=== PATIENT | female | born 1960 | race Caucasian/White ===

== ENCOUNTER 2018-08-15 20:59 | Inpatient (IN) | payer OTHER ==
--- NOTE | 2018-08-15 21:08 | ED ---
HPI Chest Pain - HPI Summary HPI Summary: THE HPI IS LIMITED DUE TO LEVEL 5 CAVEAT - SEDATION. STEMI called at 1945 approximate arrival at 2030. Patient is a 57 y/o F transfer from [facility] after presenting with CP. Per [place], patient initially was stable there with her troponin initially slightly elevated. Pt was supposed to be transferred here for further eval, however, 15-20 min later the patient became asystolic for about 30 seconds. At [facility], she was combative and shaky. She then had a complete heart block. Patient was paced. Patient was intubated because she was combative and then was transferred [facility] the cath team with Dr. Patterson (bander) was present in ED. Patient was seen by Dr. Ritter. Patient was already intubated, sedated, and on transcutaneous pacemaker upon arrival. LEVEL 5 CAVEAT: COMPLETE HPI, PAST MEDICAL HISTORY, SURGICAL HISTORY, AND FAMILY HISTORY UNABLE TO BE OBTAINED DUE TO PATIENT SEDATION. - History of Current Complaint Hx Obtained From: EMS, Other: - [facility] Hx From Patient Unobtainable Due To: Other - Sedation PMH/Surg Hx/FS Hx/Imm Hx Previously Healthy: No - THE PMH IS LIMITED DUE TO LEVEL 5 CAVEAT - SEDATION Infectious Disease History: Denies: Traveled Outside the [place] in Last 30 Days Review of Systems - ROS Summary Review of Systems Summary: THE ROS IS LIMITED DUE TO LEVEL 5 CAVEAT - SEDATION. Positive: Chest Pain All Other Systems Reviewed And Are Negative: No Physical Exam - Summary Physical Exam Summary: THE PE IS LIMITED DUE TO LEVEL 5 CAVEAT - SEDATION. VITAL SIGNS: Reviewed. GENERAL: Vitals stable. Patient is intubated and sedated on arrival HEAD AND FACE: No signs of trauma. No ecchymosis, hematomas or skull depressions. No sinus tenderness. EYES: Pupils are pinpointed bilaterally. EARS: Hearing grossly intact. Ear canals and tympanic membranes are within normal limits. MOUTH: Oropharynx within normal limits. NECK: Supple, trachea is midline, no adenopathy, no JVD, no carotid bruit, no c- spine tenderness, neck with full ROM CHEST: Symmetric, no tenderness at palpation LUNGS: Clear to auscultation bilaterally. No wheezing or crackles. Bilateral breath sounds on intubation. CVS: Patient has a transcutaneous pacemaker. ABDOMEN: Soft, non-tender. No signs of distention. No rebound no guarding, and no masses palpated. Bowel sounds are normal. EXTREMITIES: FROM in all major joints, no edema, no cyanosis or clubbing. NEURO: Alert and oriented x 3. No acute neurological deficits. Speech is normal and follows commands. SKIN: Dry and warm Triage Information Reviewed: Yes Vital Signs On Initial Exam: Initial Vital Signs Temp 0 F 08/15/18 21:06 Pulse 80 08/15/18 21:06 Resp 0 08/15/18 21:06 BP 0/0 08/15/18 21:06 Pulse Ox 0 08/15/18 21:06 Vital Signs Reviewed: Yes Chest Pain Course/Dx - Course Course Of Treatment: LIMITED DUE TO LEVEL 5 CAVEAT - SEDATION. STEMI called at 1944 approximate arrival at 2029. Patient is a 57 y/o F transfer from [facility] after presenting with CP. Per [facility], patient initially was stable there with troponin initially slightly elevated. Pt was supposed to be transfer here for further eval, however, 15-20 min later patient became asystolic for about 30 seconds, combative and shaky. She then had a complete heart block. Patient was paced. Patient was intubated because she was combative and was transferred here. In ED, [facility] cath team with Dr. Patterson (bander) was present in ED. Patient was seen by Dr. Ritter. Patient is intubated, sedated, and on transcutaneous pacemaker. 2049: consult with Dr. Patterson, discussed medical evaluation in ED. Dr. Patterson states he does not need an EKG and will take the patient straight to pit laborer in following medical evaluation. 2054: patient arrives in ED. 2054: Dr. Ritter at bedside. Patient was given 5mg Versed by EMS 1 minutes [facility]. Last BP was 117/5. PE reveals vitals stables, pupils are pinpointed bilaterally. Heart exam normal, Lung exam normal bilateral breath sounds. Patient will be admitted to hospital by Dr. Patterson with dx of inferior wall VA and complete heart block. - Diagnoses Provider Diagnoses: Acute VA, inferior wall, Complete heart block During the Visit The Following Alert/Code Occurred: STEMI - Provider Notifications Discussed Care Of Patient With: Margo Patterson Time Discussed With Above Provider: 20:50 Instructed by Provider To: Other - Discussed patient case with Dr. Patterson who will take the patient to pit laborer immediately after ER assessment. Dr. Patterson accepts the patient for admission to [facility]. Discharge - Sign-Out/Discharge Documenting (check all that apply): Patient Departure - Admit All imaging exams completed and their final reports reviewed: No Studies Patient Received Moderate/Deep Sedation with Procedure: No - Discharge Plan Condition: Critical Disposition: ADMITTED TO [facility] - Attestation Statements Document Initiated by Scribe: Yes Documenting Scribe: Tr Emmanuel Provider For Whom Scribe is Documenting (Include Credential): Ingris Ritter MD Scribe Attestation: ITr, scribed for Ingris Ritter MD on 08/15/18 at 2135. Status of Scribe Document: Ready
[2018-08-15] MEDS ORDERED: fentaNYL* 50 MCG/ML 2 ML VIAL (100 MCG VIAL) ONE (21:11)
[2018-08-15] MEDS ORDERED: Midazolam* 1 MG/ML 5 ML VIAL (5 MG) ONE (21:11)
[2018-08-15] MEDS ORDERED: Eptifibatide IV (Load dose)(*) 2 MG/ML 10 ml VIAL ONE (21:34)
[2018-08-15] MEDS ORDERED: Nitroglycerin TAB 0.4 MG* 0.4 MG TAB SL PRN (22:09)
[2018-08-15] MEDS ORDERED: Acetaminophen TAB* 325 MG PO PRN (22:09)
[2018-08-15] MEDS ORDERED: Heparin(*) 1000 UNIT/ML 10 ML VIAL CATH LAB IV ONE (22:09)
[2018-08-15] MEDS ORDERED: nitroGLYCERIN DRIP* 25,000 MCG/250 ML BTL ONE ×2 (22:10→22:15)
[2018-08-15] MEDS ORDERED: Iohexol 350 (CONTRAST) 200 ML MDV IV ONE (22:10)
[2018-08-15] MEDS ORDERED: Lidocaine 1% INJ* 10 MG/ML 30 ML SDV ONE (22:10)
[2018-08-15] MEDS ORDERED: Heparin 2 UNITS/ML IVPREMIX* 3,000 UNIT/1,500 ML BAG IV ONE (22:10)
[2018-08-15] MEDS ORDERED: NS 0.9% 1000 ML** 1,000 ML IV SCH (22:15)
[2018-08-15] MEDS ORDERED: Ticagrelor* 90 MG TAB PO ONE (22:18)
[2018-08-15] MEDS ORDERED: Propofol* 100 ML ONE (22:29)
[2018-08-15] MEDS: Propofol* 100 ML IV SCH (22:30)
[2018-08-15] MEDS ORDERED: Acetaminophen ADULT LIQ* 650 MG/20.3 ML UDC NG TUBE PRN (22:56)
[2018-08-15] MEDS ORDERED: Dextrose 50% Syringe 50 ML* 25 GM/50 ML SYRINGE IV PUSH PRN (23:16)
[2018-08-15] MEDS: Atorvastatin* 80 MG TAB NG TUBE SCH (23:19)
[2018-08-15] MEDS ORDERED: NS 0.9% 500 ML* 500 ML IV ONE (23:33)
--- NOTE | 2018-08-15 23:58 | CATH ---
STENT REPORT: DATE OF PROCEDURE: 08/15/18 - ROOM #ICU-03 PRIMARY CARE PHYSICIAN: Unknown. PROCEDURES: 1. Right common femoral artery access. 2. Bilateral obstructive coronary cineangiography. 3. Left heart catheterization. 4. Left ventriculography. 5. Stent placement right coronary artery, 3.0 x 16 Synergy drug-eluting stent. HISTORY: A 57-year-old methamphetamine user, presented to [facility] with an acute inferior wall ST elevation infarct with spontaneous resolution of symptoms and EKG changes with medical management, then followed by recurrence of chest pain, reported "asystole," apparently responsive to atropine. It is unknown to me whether she received CPR or for how long. EKG after resuscitation showed recurrence of inferior ST elevation and complete heart block. She was externally paced, intubated, and transferred here. PROCEDURE ACCESS: Right femoral artery sheath 6F. MEDICATIONS: Subcu lidocaine, IC Integrilin double bolus. The patient had no NG tube, but received loading dose of Brilinta as soon as she arrived in the ICU after NG tube was placed. She received aspirin, heparin 5000 units at [facility]. The additional medications here included nitroglycerin 200, 200 mcg IC RCA. 7000 units of heparin, 4 mg of IV versed for sedation. DIAGNOSTIC CATHETERS: 6FL 3.5, 6FR 4, 6F pigtail. GUIDING CATHETERS: 6FR 4 wire, 14 BMW, which easily traversed the proximal RCA lesion, which was then stented with a 3 x 16 Synergy drug-eluting stent at 11 atmospheres 10 seconds, then postdilated with a 3 x 15 NC balloon at 20 atmospheres for 30 seconds. LV gram was then performed. HEMODYNAMICS: Post revascularization LV 180/22. No aortic valve gradient on pullback. ANGIOGRAPHY: Fluoroscopy documented her ET tube to be at the origin of the left bronchus, it was therefore pulled back approximately an inch, and repeat fluoroscopy documented placement above the lizzy. Left main: The left main is relatively short, normal. LAD: The LAD is moderate, extends about the apex, it has mild luminal irregularity, but no significant stenosis. Her LAD supplies several small diagonals. Circumflex: Her circumflex is not dominant, it is large, she has a moderate first marginal, large posterolateral followed by a smaller posterolateral. There are left to right collaterals to probably an RV free wall branch. RCA: The RCA is moderate, dominant with an eccentric and 90% proximal stenosis with distal ELIJAH-2 flow, this is unchanged after a total of 400 mcg of IC nitroglycerin. After stent deployment and high pressure postdilatation, the stent is well expanded, there is no dissection, residual stenosis. Distal flow is ELIJAH 3, there is a normal myocardial blush. LV gram: There is mild dilatation of the ascending aorta, there is no MR. The inferior base is akinetic, the inferior wall shows mild hypokinesis, estimated LVEF 45% to 50%. Right femoral artery angiogram showed sheath entry in segment 2, there is no stenosis. CONCLUSION: 1. Single-vessel disease RCA with acute inferior wall ST elevation infarct, excellent angiographic result with drug-eluting stent placement, adjunctive double bolus IC Integrilin. 2. Normal LVEF with regional wall motion abnormality. 3. Elevated LVDP and systolic hypertension. 4. Successful right femoral artery closure with Angio-Seal. [id number]/[facility] #: [id number] HUSSEIN
[2018-08-15 23:59] LABS: Creatine Kinase 240 U/L (10-223); Glucose 101 mg/dL (70-100)
[2018-08-16 00:05] LABS: CKMB ng/mL 10.1 ng/mL (0.6-6.3)
--- NOTE | 2018-08-16 00:23 | CONS ---
INTERVENTIONAL CARDIOLOGY CONSULT NOTE: DATE OF CONSULTATION: 08/15/18 PRIMARY CARE PHYSICIAN: Unknown. HISTORY OF PRESENT ILLNESS: A 57-year-old woman transferred from [place] [facility] with acute inferior wall ST elevation infarct, complete heart block, intubated. The patient is unable to provide any history as she is intubated and sedated. However, per discussion with her provider at [place], she apparently developed chest pain at around 1800 hours and promptly presented in the ER. EKG there at 1803 by my review shows an acute inferior wall ST elevation infarct and sinus rhythm. She had injury current in 2, 3, and aVF as well as reciprocal ST depression in 1, aVL. She also had slight ST elevation in V3 similar to an old tracing. She had poor R-wave progression. Apparently, subsequently her chest pain improved with medical management and resolved, repeat EKG at 1840 hours shows improvement in the injury current and the reciprocal changes with now inferior T-wave inversion. She apparently; however, then had recurrence of chest pain, became "asystolic," was resuscitated. EKG at 1903 hours showed complete heart block with a ventricular rate of 49, and again inferior ST elevation with reciprocal ST depression in aVL, as well as ST elevation in V1 and V2. She again had poor R-wave progression. Lab at [place] included a BUN of 15 with creatinine 0.8, GFR 74. Random blood sugar was 143. Magnesium 2. Alkaline phosphatase was elevated at 172, we have no prior. First troponin was 0.189. INR normal, CBC was normal with a platelet count of 292,000. She apparently had a chest x-ray there after intubation, which per the transfer records indicates proper tube placement. En route, her end-tidal CO2s were normal. At [place], she received 40 mg of etomidate and 140 mg of succinylcholine for sedation. She also received 5 mg of Versed, 0.5 mg of atropine, an additional 2.5 mg of Versed, 5000 units of heparin, 5 mg of IV metoprolol some 20 to 30 minutes prior to her asystole, as well as sublingual nitroglycerin and aspirin 324 mg. Her potassium was normal at 3.7 with a normal sodium. We do not have that chest x-ray. PAST MEDICAL HISTORY: 1. Diabetes type 2. 2. She is an active methamphetamine user. According to transfer history, she last used this morning but we know nothing about the quantity or frequency of her use. 3. History of diverticulitis and gastritis. PREHOSPITAL MEDICATIONS: Unknown. ALLERGIES: Described as to NICKEL, CIPRO, and ADHESIVE TAPE. SOCIAL HISTORY: She is a smoker. REVIEW OF SYSTEMS: Unobtainable. PHYSICAL EXAM: On arrival, she was sedated, having just received 5 mg of Versed during transport. Initial BP was 117/45, she was paced at 80. In the labor relations manager, blood pressure was 129/88, she was in sinus rhythm at 90 with normal VT interval. External pacing was therefore discontinued. Her lungs were clear laterally without rales or wheezes. HEENT: Her pupils were small and symmetrical, face grossly symmetric without drooping. Neck: No thyromegaly. Carotids palpable. No bruits. Cardiac Exam: Relatively distant heart sounds, difficult to auscultate with the external pacer. No obvious murmur or gallop. Abdomen: Soft, nontender with bowel sounds, I could not feel the liver edge or the aorta. No bruit. Femoral pulses palpable. Extremities: Radial pulses and pedal pulses palpable. No cyanosis, clubbing, or edema. DIAGNOSTIC STUDIES/LAB DATA: As above. IMPRESSION: 1. Acute inferior wall ST elevation infarct, complicated by apparently asystole and complete heart block, treated with atropine and external pacing, at arrival here she was in sinus rhythm. She was brought directly to the catheterization lab for catheterization and potential revascularization. 2. Methamphetamine use. We will avoid beta-blockers, rule out coronary spasm. 3. Obesity. 4. Tobacco use. Thank you for the consultation. We will follow with you. [id number]/[facility] #: [id number] HUSSEIN
[2018-08-16] MEDS: Insulin LISPRO* 1 UNITS UNIT SUBCUT SCH ×6 (00:32→20:11)
[2018-08-16 00:56] LABS: Urine Appearance Cloudy; Urine Bilirubin Negative (Negative); Urine Blood Negative (Negative); Urine Color Yellow; Urine Glucose Negative (Negative); Urine Ketones Negative (Negative); Urine Nitrite Negative (Negative); Urine Protein Negative (Negative); Urine Specific Gravity 1.032 (1.010-1.030); Urine Urobilinogen Negative (Negative)
[2018-08-16] MEDS: Captopril TAB* 12.5 MG PO SCH ×4 (01:14→21:02)
[2018-08-16 01:21] LABS: Urine Benzodiazepine Screen Presumptive Positive (None Detect); Urine Opiates Screen None Detected (None Detect)
[2018-08-16] MEDS: Propofol* 100 ML IV SCH ×2 (01:40→04:56)
--- NOTE | 2018-08-16 02:03 | PN ---
Hospitalist Progress Note Date of Service: 08/16/18 HOSPITALIST ADDENDUM Called by RN because patient was hypotensive and hypothermic. NTG drip d/c with good BP response. Bairhugger and warm saline infused with good response and temperature normalization. She is up to 60mcg of Propofol, but not comfortable, frowning - will add Fentanyl. Continue to monitor.
--- NOTE | 2018-08-16 02:09 | HP ---
CC: Dr. Katrina Allan; Dr. Margo Patterson HISTORY AND PHYSICAL: DATE OF ADMISSION: 08/15/18 TIME OF EVALUATION: 10:45 a.m. CRITICAL CARE PHYSICIAN: Dr. Katrina Allan. EMBROIDERER: Dr. Margo Patterson. PRIMARY CARE PROVIDER: There is no primary care provider on record. CHIEF COMPLAINT: It is obtained from the records as the patient is intubated and sedated. "Chest pain." HISTORY OF PRESENT ILLNESS: Please note that the patient is intubated and sedated at the time of my interview, so all of the information is obtained from her records from [facility] as the patient has not been admitted to our facility in the past. As per records, Ms. Sawyer is a 57-year-old lady with a past medical history of hypertension, type 2 diabetes, methamphetamine abuse, tobacco abuse, who presented to the emergency room at [facility] with complaints of chest pain that had started shortly before 6 p.m. today. According to the ED provider by the time he went to evaluate her, her chest pain was resolved. She was not in distress, had no complaints of shortness of breath, had admitted using meth the morning of presentation and every day. Her initial workup at [place] had shown ischemic changes in the inferior leads and also troponin elevation and the plan was for her to be transferred to [facility] [place] further evaluation. Around 6:40 p.m., the notes document that she was still pain-free and she received heparin and also got Lopressor 5 mg IV. Her case was discussed with [facility] and arrangements were being made for her transfer when she went asystolic and a code was called. According to the notes, the provider described that she was shaking and her heart rhythm slowly came back bradycardic and complete heart block. She received atropine 0.5 mg IV push and pacing pads were applied. At that point, the patient was yelling in pain because her chest pain had returned. She received Versed. They were able to pace her and her blood pressure had improved. Due to the medication she received for the pacing, the patient was more sedated and she ended being intubated in the ED prior to her transfer. At [facility], she was taken to the section laborer by Dr. Patterson and she was found to have a 90% stenosis in the proximal RCA that did not respond to nitroglycerin, felt not to be secondary to vasospasms. The patient was stented with a drug-eluting stenting and transferred to the intensive care unit for further management. At the time of evaluation, the patient was receiving sedation with propofol and although she was agitated early on, she is now calm and sedated. PAST MEDICAL HISTORY: 1. Hypertension, not on medications. 2. GERD. 3. Type 2 diabetes. 4. Methamphetamine abuse. 5. Tobacco abuse. PAST SURGICAL HISTORY: Possible pelvic adhesions. MEDICATION LIST: Not documented on the records from [place]. ALLERGIES: NICKEL, CIPROFLOXACIN, and ADHESIVE. FAMILY HISTORY: Unable to obtain due to the patient's sedation. SOCIAL HISTORY: History of tobacco abuse and methamphetamine abuse, but details are not available at this time. REVIEW OF SYSTEMS: Unable to obtain due to the patient's sedation. PHYSICAL EXAMINATION VITAL SIGNS: Temperature 97.5, heart rate 83, respiratory rate 14, blood pressure 88/63, Oxygen saturation 99% on CMV 14/450/80/5 GENERAL: The patient is an overweight, middle-aged lady, lying in the ICU bed, in no acute distress. HEENT: Pupils are equal. Moist mucous membranes. CHEST: Breath sounds bilaterally with no added sounds. CVS: Normal S1, S2. Regular rate and rhythm. ABDOMEN: Obese, soft, nontender, and nondistended. Bowel sounds are present. EXTREMITIES: No edema. NEURO: The patient is sedated at this time. LABORATORY AND IMAGING DATA: The patient had labs done at [facility] that included a sodium of 143, potassium of 3.7, chloride of 104, bicarb of 26, anion gap of 13, BUN of 15, creatinine of 0.8, glucose of 143, calcium of 9.3, magnesium 2. Total bilirubin 0.6, AST 29, ALT 42, alk phos 172. CPK 285, CK-MB 8.5, troponin 0.189. Albumin 3.7, globulin 3.8. INR is 0.9. CBC showed WBC of 10.8 , hemoglobin of 14.3, hematocrit of 43, platelets of 292 with 48% neutrophils. Chest x-ray done at [place] was read as the heart is normal in size and the lungs are clear, no acute disease. Initial EKG done at 6:[address] elevations in 2, 3, and aVF and those were improved. Later on, the EKG done at 6:40. At that point, she actually had T-wave inversion on the inferior leads with recurrence of ST elevations in the same leads at 7:03 p.m. An EKG done after her cardiac cath at 2258 shows flat Ts in II with T inversion in III. ASSESSMENT AND PLAN: Ms. Sawyer is a 57-year-old female with past medical history of hypertension, type 2 diabetes, methamphetamine and tobacco abuse, who presented to [facility] earlier this evening with complaint of severe chest pain, found to have an ST elevation myocardial infarction, complicated by asystole and complete heart block requiring intubation. The patient was transferred to [facility] where she underwent a cardiac catheterization and found to have 90% stenosis of the right coronary artery, status post stenting. 1. ST elevation myocardial infarction. Management as per Cardiology recommendation. The patient was started on aspirin, Brilinta, atorvastatin and captopril per Cardiology. She will be monitored in the intensive care unit. 2. Hypertension is controlled at this time. The patient will be continued on captopril. 3. Type 2 diabetes. We will check fingersticks every 4 hours and cover with lispro sliding scale while the patient is n.p.o. 4. Methamphetamine abuse. The patient will be monitored for signs of withdrawal, but at this point she is sedated with propofol and doing well. 5. DVT prophylaxis: The patient has a score of 2 on a DVT Prophylaxis Risk Assessment Guide and she will be started on SCDs. 6. Code status is full. TIME SPENT: Approximately 50 minutes of critical care time was spent to complete this admission, more than half of this time was spent [id number] with the patient and coordination of care. [id number]/[facility] #: [id number] HUSSEIN
[2018-08-16] MEDS ORDERED: NS 0.9% 1000 ML** 1,000 ML IV SCH (02:30)
[2018-08-16] MEDS: Chlorhexidine MOUTHWASH 0.12%* 15 ML UDC TOPICAL SCH ×2 (04:38→08:38)
[2018-08-16 05:02] LABS: ABS Basophils 0.1 10^3/ul (0-0.2); ABS Eosinophils 0.1 10^3/ul (0-0.6); ABS Lymphocytes 3.5 10^3/ul (1.0-4.8); ABS Neutrophils 5.7 10^3/ul (1.5-7.7); Eosinophil % 0.9 %; Hematocrit 36 % (35-47); Hemoglobin 11.8 g/dL (12.0-16.0); Lymphocyte % 33.8 %; Mean Corpuscular HGB Conc 33 g/dL (31-36); Mean Corpuscular Hemoglobin 28 pg (27-31); Mean Corpuscular Volume 83 fL (80-97); Mean Platelet Volume 9.2 fL (7.4-10.4); Nucleated Red Blood Cells % 0.1; Platelet Count 224 10^3/uL (150-450); Red Blood Count 4.28 10^6 /uL (3.70-4.87); Red Cell Distribution Width 15 % (10.5-15); White Blood Count 10.3 10^3/uL (3.5-10.8)
[2018-08-16 05:20] LABS: BUN/Creatinine Ratio 21.9 (8-20); Blood Urea Nitrogen 16 mg/dL (6-24); CO2 Carbon Dioxide 25 mmol/L (22-32); Calcium 8.1 mg/dL (8.6-10.3); Cholesterol 165 mg/dL; Creatine Kinase 246 U/L (10-223); EGFR African American 99.4 (>60); EGFR Non-African American 82.2 (>60); Glucose 100 mg/dL (70-100); HDL Cholesterol 36.7 mg/dL; LDL Cholesterol 84 mg/dL; Potassium 3.3 mmol/L (3.5-5.0); Sodium 141 mmol/L (135-145); Triglycerides 223 mg/dL
[2018-08-16 05:22] LABS: Anion Gap 4 mmol/L (2-11); Chloride 112 mmol/L (101-111)
[2018-08-16 05:25] LABS: CKMB ng/mL 20.2 ng/mL (0.6-6.3); Troponin I 1.88 ng/mL (<0.04)
[2018-08-16] MEDS ORDERED: fentaNYL INFUSION 50 MCG/ML* 2,500 MCG/50 ML BAG IV SCH ×3 (06:00→08:00)
[2018-08-16] MEDS: Aspirin 81 mg CHEW TAB* 81 MG TAB.CHEW NG TUBE SCH (08:36)
[2018-08-16] MEDS: Ticagrelor* 90 MG TAB PO SCH ×2 (08:36→21:03)
[2018-08-16] MEDS: Pantoprazole IV* 40 MG IV SCH (08:45)
--- NOTE | 2018-08-16 09:21 | HP ---
History of Present Illness - History of Present Illness Reason for Visit: STEMI, shock, code arrest, intubation/mechanical ventilation History of Present Illness: 57 yo F with hx/o HTN, DM2, methamphetamine abuse, tobacco abuse transfered from [facility] for concerns with IW-STEMI followed by 30 seconds of asystole with complete heart block. Patient was intubated for extreme agitation and transferred to [facility] with transcutaneous pacemaker. [facility] the [facility] for PCI and found to have 90% stenosis of the proximal RCA s/p TOBY 08/15: Patient was wide awake and following commands appropriately with propofol just turned off and fentanyl 50. She was extubated on fentanyl 25 which was soon turned off without any immediate complications. She denies any current pain, fever. - Past Medical History Cardiac: CAD, HTN, Hyperlipidemia Gastrointestinal: GERD Psych: Other - Substance abuse Endocrine: Diabetes - Past Family History Family History: Other - Non contributory - Past Social History Smoke: # pack years Drugs: Other - Amphetamines Review of Systems - Review of Systems Constitutional: Negative: Fever, Chills Eyes: Negative: Vision Change ENT: Positive: Throat Pain. Negative: Ear Pain, Ear Discharge, Nose Congestion Respiratory: Positive: Cough, Shortness of Breath Cardiovascular: Negative: Chest Pain Gastrointestinal: Negative: Nausea, Vomiting, Abdominal Pain Genitourinary: Negative: Dysuria, Frequency Musculoskeletal: Negative: Neck Pain, Shoulder Pain, Back Pain Skin: Negative: Rash Neurological: Positive: Weakness - Medications/Allergies Allergies/Adverse Reactions: Allergies Allergy/AdvReac Type Severity Reaction Status Date / Time Adhesive Tape Allergy Unknown Verified 08/15/18 23:01 Reaction Details ciprofloxacin Allergy Unknown Verified 08/15/18 23:01 Reaction Details nickel Allergy Unknown Verified 08/15/18 23:01 Reaction Details Medications: Current Medications Acetaminophen (Tylenol Adult Liq*) 650 mg NG TUBE Q4H PRN PRN Reason: HEADACHE/PAIN Aspirin (Aspirin 81 Mg Chew Tab*) 81 mg NG TUBE DAILY [facility] Last Admin: 08/16/18 08:36 Dose: 81 mg Atorvastatin Calcium (Lipitor*) 80 mg NG TUBE 1700 [facility] Last Admin: 08/15/18 23:19 Dose: 80 mg Captopril (Capoten Tab*) 6.25 mg PO TID [facility] Last Admin: 08/16/18 08:36 Dose: 6.25 mg Chlorhexidine Gluconate (Peridex Mouth Wash 0.12%*) 15 ml TOPICAL Q4H [facility] Last Admin: 08/16/18 08:38 Dose: 15 ml Dextrose (D50w Syringe 50 Ml*) 12.5 gm IV PUSH .FOR FS < 60 - SS PRN PRN Reason: FS < 60 Propofol (Diprivan*) 100 mls @ 11.1 mls/hr IV PER RATE [facility]; Protocol Last Admin: 08/16/18 04:56 Dose: 33.3 mls/hr Sodium Chloride (Ns 0.9% 1000 Ml) 1,000 mls @ 100 mls/hr IV PER RATE [facility] Last Admin: 08/16/18 02:26 Dose: 100 mls/hr Fentanyl Citrate (Fentanyl Infusion Bag 50 Mcg/Ml 50 Ml) 2,500 mcg in 50 mls @ 1 mls/hr IV Q50H [facility]; Protocol Insulin Human Lispro (Humalog*) 0 units SUBCUT FS Q4 ICU [facility]; Protocol Last Admin: 08/16/18 08:37 Dose: Not Given Nitroglycerin (Nitroglycerin Tab 0.4 Mg*) 0.4 mg SL Q5M PRN PRN Reason: ANGINA Pantoprazole Sodium (Protonix Iv*) 40 mg IV DAILY [facility] Ticagrelor (Brilinta*) 90 mg PO BID [facility] Last Admin: 08/16/18 08:36 Dose: 90 mg Exam - Exam Vital Signs: Vital Signs (72 hours) 08/15/18 08/15/18 08/15/18 21:06 22:30 22:31 Temperature 0 F Pulse Rate 80 92 82 Respiratory 0 Rate Blood Pressure 0/0 129/95 (mmHg) O2 Sat by Pulse 0 100 100 Oximetry 08/15/18 08/15/18 08/15/18 22:45 22:58 23:00 Temperature 65.4 F Pulse Rate 101 86 81 Respiratory 20 14 Rate Blood Pressure 117/88 129/95 92/67 (mmHg) O2 Sat by Pulse 100 100 100 Oximetry 08/15/18 08/15/18 08/15/18 23:15 23:20 23:30 Temperature 95.4 F 95.2 F 95.4 F Pulse Rate 79 77 77 Respiratory Rate Blood Pressure 87/61 84/51 79/54 (mmHg) O2 Sat by Pulse 100 100 100 Oximetry 08/15/18 08/16/18 08/16/18 23:45 00:00 00:04 Temperature 95.5 F 95.2 F 95.0 F Pulse Rate 74 71 71 Respiratory Rate Blood Pressure 81/53 83/55 (mmHg) O2 Sat by Pulse 100 100 100 Oximetry 08/16/18 08/16/18 08/16/18 00:15 00:30 00:31 Temperature 94.8 F 94.8 F 94.8 F Pulse Rate 70 67 66 Respiratory Rate Blood Pressure 84/52 69/43 75/45 (mmHg) O2 Sat by Pulse 100 100 100 Oximetry 08/16/18 08/16/18 08/16/18 00:45 01:00 01:15 Temperature 94.5 F 94.1 F 94.5 F Pulse Rate 67 65 67 Respiratory 14 Rate Blood Pressure 72/51 71/48 77/56 (mmHg) O2 Sat by Pulse 100 100 100 Oximetry 08/16/18 08/16/18 08/16/18 01:30 01:45 01:55 Temperature 93.6 F 93.7 F 96 F Pulse Rate 68 69 Respiratory Rate Blood Pressure 80/58 87/62 (mmHg) O2 Sat by Pulse 100 100 Oximetry 08/16/18 08/16/18 08/16/18 02:00 02:15 02:30 Temperature 94.6 F 95.0 F 95.2 F Pulse Rate 69 70 73 Respiratory 14 Rate Blood Pressure 92/56 90/55 97/61 (mmHg) O2 Sat by Pulse 100 100 99 Oximetry 08/16/18 08/16/18 08/16/18 02:45 03:00 03:01 Temperature 95.5 F 96.1 F 96.1 F Pulse Rate 77 77 77 Respiratory 14 Rate Blood Pressure 110/69 103/72 (mmHg) O2 Sat by Pulse 99 99 99 Oximetry 08/16/18 08/16/18 08/16/18 03:15 03:30 04:00 Temperature 96.4 F 96.8 F 97.5 F Pulse Rate 79 80 79 Respiratory 14 Rate Blood Pressure 112/66 105/70 101/63 (mmHg) O2 Sat by Pulse 99 99 99 Oximetry 08/16/18 08/16/18 08/16/18 04:01 04:30 05:00 Temperature 97.5 F 97.5 F 97.5 F Pulse Rate 79 86 83 Respiratory 14 Rate Blood Pressure 122/72 88/63 (mmHg) O2 Sat by Pulse 99 99 99 Oximetry 08/16/18 08/16/18 08/16/18 05:17 05:30 05:34 Temperature 97.7 F 97.7 F Pulse Rate 84 87 Respiratory 14 Rate Blood Pressure 95/63 102/61 (mmHg) O2 Sat by Pulse 99 99 Oximetry 08/16/18 08/16/18 08/16/18 05:45 06:00 06:14 Temperature 97.9 F 97.9 F Pulse Rate 88 90 Respiratory 17 14 Rate Blood Pressure 107/68 113/70 (mmHg) O2 Sat by Pulse 99 99 Oximetry 08/16/18 08/16/18 08/16/18 06:15 06:30 06:45 Temperature 98.1 F 98.1 F 98.1 F Pulse Rate 87 89 88 Respiratory Rate Blood Pressure 120/75 127/79 137/74 (mmHg) O2 Sat by Pulse 99 99 100 Oximetry 08/16/18 08/16/18 08/16/18 07:00 07:30 08:00 Temperature 98.1 F 98.2 F 98.2 F Pulse Rate 87 87 81 Respiratory Rate Blood Pressure 128/79 121/73 116/74 (mmHg) O2 Sat by Pulse 99 100 100 Oximetry 08/16/18 08/16/18 08:30 09:00 Temperature 98.1 F 98.1 F Pulse Rate 81 78 Respiratory Rate Blood Pressure 118/70 (mmHg) O2 Sat by Pulse 99 98 Oximetry General: Alert, Oriented x3, No acute distress HEENT: Atraumatic, PERRLA, Mucous membr. moist/pink Lungs: Clear to auscultation Cardiovascular: Regular rate, Normal S1, Normal S2 Abdomen: Normal bowel sounds, Soft, No tenderness, No masses Extremities: No clubbing, No cyanosis, No edema Skin: No rashes, No breakdown Neurological: Cranial nerves 3-12 NL Assessment/Plan - Assessment/Plan Assessment: 57-year-old female with past medical history of hypertension, type 2 diabetes, methamphetamine and tobacco abuse admitted after acute IW-STEMI with complete heart block s/p PCI/TOBY to RCA 08/16/18, intubated 08/15 for extreme agitation and extubated on 08/16 Plan: # Acute inferior wall ST elevation myocardial infarction s/p TOBY of RCA (Dr Patterson) -on aspirin, Brilinta, atorvastatin and captopril - Cardio recs # Complete heart block likely due to occluded coronary AM EKG shows NSR Will discuss with cardiology prior to extubation if any intervention is sought # Acute ventilator dependence - SWT/SBT passed-->extubated today without any immediate complication - BD # Hypertension # HLD -on captopril - on atorvastatin # Type 2 diabetes - FSBG, SSI # LLL atelectasis vs PNA afebrile no leukocytosis -no abx for now - ICS upon extubation # Hypokalemia 3.3 -target K+ >/=4 # Methamphetamine abuse # Tobacco abuse - monitor for signs of withdrawal # DVT prophylaxis -SCD Code status: Full Prognosis: Guarded Dispo: Monitor in the ICU Critical Care issues: intubation/mechanical ventilation, complete heart block, STEMI Critical Care time: 60 minutes
[2018-08-16] MEDS: KCL 20 MEQ/100 ML IVPREMIX* 20 MEQ/100 ML BAG IV SCH ×2 (11:26→13:17)
[2018-08-16 12:13] LABS: Creatine Kinase 244 U/L (10-223)
[2018-08-16 12:18] LABS: Troponin I 1.38 ng/mL (<0.04)
[2018-08-16 12:19] LABS: CKMB ng/mL 19.9 ng/mL (0.6-6.3)
[2018-08-16] MEDS: Atorvastatin* 80 MG TAB NG TUBE SCH (16:43)
[2018-08-17 06:32] LABS: BUN/Creatinine Ratio 13.6 (8-20); Calcium 8.2 mg/dL (8.6-10.3); EGFR African American 111.7 (>60); EGFR Non-African American 92.3 (>60); Magnesium 1.9 mg/dL (1.9-2.7); Phosphorus 2.8 mg/dL (2.5-5.0); Potassium 3.6 mmol/L (3.5-5.0)
[2018-08-17] MEDS ORDERED: Perflutren Lipid Microsphere* 3 ML VIAL ONE (08:04)
[2018-08-17] MEDS: Insulin LISPRO* 1 UNITS UNIT SUBCUT SCH ×4 (08:11→21:52)
--- NOTE | 2018-08-17 09:09 | ECHO ---
*[facility]* [place] [address] Fax #: [phone] Transthoracic Echocardiogram Patient: Silverio, Height: 66 in / Shalonda 167.6 cm : 1960 Weight: 171.6 lb / Study Date: 08/17/2018 78 kg Age: 57 BP: 128 / 63 Gender: F BMI/BSA: 27.8 kg/m^2 HR: 60 bpm / 1.92 m^2 *Housing Grant Analyst: * Sahara Pritchard [facility] *Reading Physician: * Baltazar Pan MD Indications: Murmur. History: Complete heart block. PMH: Myocardial infarction. Risk factors: Current tobacco use. Hypertension. Diabetes mellitus. Labs, prior tests, procedures, and surgery: Catheterization. There was a stenosis which was treated with a stent. Conclusions Summary: 1. Left ventricle: The cavity size is normal. Wall thickness is mildly to moderately increased. Systolic function is normal. The estimated ejection fraction is 55-60%. Wall motion is normal; there are no regional wall motion abnormalities. 2. Study data: No prior study is available for comparison. 3. Aortic valve: There is no evidence of stenosis. 4. Tricuspid valve: There is no significant regurgitation. 5. Pericardium, extracardiac: There is no significant pericardial effusion. 6. Mitral valve: There is no significant regurgitation. Study data: Transthoracic echocardiogram. Procedure: Transthoracic echocardiography was performed. Image quality was fair. Intravenous contrast (Definity, 3 mls) was administered. Complete 2D, spectral Doppler, and color flow Doppler. Location: Bedside. Patient status: Inpatient. Patient room number: 446 02. No prior study is available for comparison. Rhythm: Normal sinus rhythm. Findings Left ventricle: The cavity size is normal. Wall thickness is mildly to moderately increased. Systolic function is normal. The estimated ejection fraction is 55-60%. Wall motion is normal; there are no regional wall motion abnormalities. There is no consistent Doppler evidence of clinically significant diastolic dysfunction. Right ventricle: The cavity size is normal. Wall thickness is mildly increased. Systolic function is normal. Left atrium: The atrium is normal in size. Right atrium: The atrium is normal in size. Mitral valve: The leaflets are normal thickness. There is no evidence of stenosis. There is no significant regurgitation. The peak diastolic gradient is 3.5 mm Hg. Aortic valve: The valve is trileaflet. The leaflets are normal thickness. There is no evidence of stenosis. There is no significant regurgitation. The LVOT to aortic valve VTI ratio is 0.7. The ratio of LVOT to aortic valve peak velocity is 0.68. The ratio of LVOT to aortic valve mean velocity is 0.71. The mean systolic gradient is 6.5 mm Hg. The peak systolic gradient is 14.1 mm Hg. Tricuspid valve: The leaflets are normal thickness. There is no evidence of stenosis. There is no significant regurgitation. Pulmonic valve: The leaflets are normal thickness. There is no evidence of stenosis. There is trivial regurgitation. The peak systolic gradient is 3.0 mm Hg. Aorta: Aortic arch: The aortic arch is appears normal. The aortic root is not dilated. Pericardium: There is no significant pericardial effusion. Pulmonary arteries: The main pulmonary artery is normal-sized. Systemic veins: Inferior vena cava: The vessel is normal in size. The respirophasic diameter changes are in the normal range (>= 50%). Measurements Left ventricle Value Ref Right atrium continued Value Ref ANTONETTE, LAX 4.1 cm 3.8 - 5.2 ML dim, ES, A4C 3.2 cm 2.6 - 4.4 ESD, LAX 2.6 cm 2.2 - 3.5 Estimated RAP 8 mm Hg --------- FS, LAX 36 % 27 - 45 PW, ED, LAX (H) 1.3 cm 0.6 - 0.9 Aortic valve Value Ref EF 65 % 54 - 74 Elmer diam, ED 2.0 cm --------- E', lat elmer, TDI (L) 6.0 cm/sec >=10.0 Peak v, S 1.88 m/sec ----- ---- E/e', lat elmer, 16 VTI, S 35.4 cm -------- - TDI Mean grad, S 6.5 mm Hg --------- E', med elmer, TDI (L) 6.0 cm/sec >=7.0 Peak grad, S 14.1 mm Hg ----- ---- E/e', med elmer, 16 TDI Mitral valve Value Ref E', avg, TDI 6.0 cm/sec Peak E 0.93 m/sec -------- - E/e', avg, TDI (H) 16 <=14 Peak A 1.07 m/sec ----- ---- Decel time 220 ms --------- LVOT Value Ref Peak grad, D 3.5 mm Hg --------- Peak hammad, S 1.28 m/sec Peak E/A ratio 0.87 --------- VTI, S 24.9 cm Peak grad, S 7 mm Hg Pulmonic valve Value Ref Mean grad, S 3 mm Hg Peak v, S 0.86 m/sec --------- Peak grad, S 3.0 mm Hg --------- Ventricular septum Value Ref IVS, ED, LAX (H) 1.3 cm 0.6 - 0.9 Aortic root Value Ref Root diam 3.0 cm <4.1 Right ventricle Value Ref AW thickness, ED (H) 0.9 cm 0.1 - 0.5 Ascending aorta Value Ref ANTONETTE, LAX 2.9 cm AAo AP diam, S 3.0 cm --------- ANTONETTE major ax, (L) 2.7 cm 5.9 - 8.3 A4C Aortic arch Value Ref Arch diam 2.9 cm --------- Left atrium Value Ref LA ID 4.2 cm Decending aorta Value Ref AP dim, ES (H) 4.17 cm 2.70 - Chepe peak hammad 0.89 m/sec --------- 3.80 SI dim ES, LAX 4.2 cm Inferior vena cava Value Ref ML dim, A4C 4.2 cm Diam 1.8 cm --------- Vol/bsa, ES, 2-p 27 ml/m^2 16 - 34 LA/Ao root ratio 1.39 Right atrium Value Ref SI dim, ES 4.1 cm 3.4 - 5.3 Legend: (L) and (H) chelsi values outside specified reference range. Prepared and electronically signed by Baltazar Pan MD 08/17/2018 09:08
[2018-08-17] MEDS: Diltiazem CD CAP* 120 MG PO SCH (09:47)
[2018-08-17] MEDS: Pantoprazole IV* 40 MG IV SCH (09:47)
[2018-08-17] MEDS: Aspirin 81 mg CHEW TAB* 81 MG TAB.CHEW NG TUBE SCH (09:47)
[2018-08-17] MEDS: Captopril TAB* 12.5 MG PO SCH ×3 (09:47→20:49)
[2018-08-17] MEDS: Ticagrelor* 90 MG TAB PO SCH ×2 (10:01→20:49)
[2018-08-17 10:05] LABS: Hematocrit 36 % (35-47); Hemoglobin 11.7 g/dL (12.0-16.0); Mean Corpuscular HGB Conc 33 g/dL (31-36); Mean Corpuscular Hemoglobin 28 pg (27-31); Mean Corpuscular Volume 84 fL (80-97); Mean Platelet Volume 9.1 fL (7.4-10.4); Platelet Count 226 10^3/uL (150-450); Red Blood Count 4.26 10^6 /uL (3.70-4.87); Red Cell Distribution Width 15 % (10.5-15); White Blood Count 9.5 10^3/uL (3.5-10.8)
--- NOTE | 2018-08-17 11:00 | PN ---
Subjective Date of Service: 08/17/18 Interval History: Pt is feeling ok. She denies any chest pain. No SOB. Her R groin is sore to touch. Objective Active Medications: Acetaminophen (Tylenol Adult Liq*) 650 mg NG TUBE Q4H PRN PRN Reason: HEADACHE/PAIN Last Admin: 08/16/18 16:43 Dose: 650 mg Aspirin (Aspirin 81 Mg Chew Tab*) 81 mg NG TUBE DAILY [facility] Last Admin: 08/17/18 09:47 Dose: 81 mg Atorvastatin Calcium (Lipitor*) 80 mg PO 1700 [facility] Captopril (Capoten Tab*) 6.25 mg PO TID [facility] Last Admin: 08/17/18 09:47 Dose: 6.25 mg Dextrose (D50w Syringe 50 Ml*) 12.5 gm IV PUSH .FOR FS < 60 - SS PRN PRN Reason: FS < 60 Diltiazem HCl (Cardizem Cd Cap*) 120 mg PO DAILY [facility] Last Admin: 08/17/18 09:47 Dose: 120 mg Insulin Human Lispro (Humalog*) 0 units SUBCUT ACHS [facility]; Protocol Last Admin: 08/17/18 08:11 Dose: Not Given Nitroglycerin (Nitroglycerin Tab 0.4 Mg*) 0.4 mg SL Q5M PRN PRN Reason: ANGINA Pantoprazole Sodium (Protonix Iv*) 40 mg IV DAILY [facility] Last Admin: 08/17/18 09:47 Dose: 40 mg Ticagrelor (Brilinta*) 90 mg PO BID [facility] Last Admin: 08/17/18 10:01 Dose: 90 mg Vital Signs - 8 hr 08/17/18 08/17/18 03:08 08:23 Temperature 98.0 F 97.8 F Pulse Rate 66 74 Respiratory 20 19 Rate Blood Pressure 128/63 143/80 (mmHg) O2 Sat by Pulse 97 98 Oximetry Oxygen Devices in Use Now: None Appearance: Middle aged female sitting up in bed, tremulous, NAD Eyes: No Scleral Icterus Ears/Nose/Mouth/Throat: Mucous Membranes Moist Respiratory: Symmetrical Chest Expansion and Respiratory Effort, Clear to Auscultation Cardiovascular: NL Sounds; No Murmurs; No JVD, RRR, No Edema Abdominal: NL Sounds; No Tenderness; No Distention Extremities: No Clubbing, Cyanosis Skin: No Nodules or Sclerosis Neurological: Alert and Oriented x 3 Result Diagrams: 08/17/18 09:46 08/17/18 05:50 Microbiology and Other Data: Microbiology 08/16/18 01:00 Nasal Screen MRSA (PCR) - Final Nasal Mrsa Not Detected Assess/Plan/Problems-Billing Ms Sawyer is a 57 yo F who has a h/o methamphetamine abuse, HTN, DM, GERD and tobacco abuse who presented to the ER at [place] with c/o CP and was subsequently intubated following asystole event then complete heart block requiring external pacing and sedation and subsequently transferred to [facility]. She was taken to the liaison inspection laboratory assistant where a 90% RCA lesion was stented. - Patient Problems (1) ST elevation (STEMI) myocardial infarction involving right coronary artery Current Visit: Yes Status: Acute Code(s): I21.11 - STEMI INVOLVING RIGHT CORONARY ARTERY SNOMED Code(s): 93873300 Comment: The patient was stented on the night of admission. ? fixed lesion vs coronary artery vasospasm. We reviewed the need to continue on her medications exactly as prescribed. Plan for ultrasound of R groin to eval for possible hematoma. Up and walking around today. Likely home tomorrow. (2) HTN (hypertension) Current Visit: Yes Status: Acute Code(s): I10 - ESSENTIAL (PRIMARY) HYPERTENSION SNOMED Code(s): 02791720 Comment: BP mildly elevated despite being on captopril. Diltiazem added today by Dr. Kim for concern that she had coronary artery vasospasm. On d/c will transition to lisinopril from captopril. (3) Type II diabetes mellitus Current Visit: Yes Status: Acute Comment: A1c is 5.9% this admission. ? diet controlled DM. (4) Methamphetamine abuse Current Visit: Yes Status: Acute Code(s): F15.10 - OTHER STIMULANT ABUSE, UNCOMPLICATED SNOMED Code(s): 814169949 Comment: Pt states she is going to stop using. Will encourage abstinence. (5) DVT prophylaxis Current Visit: Yes Status: Acute Code(s): Z29.9 - ENCOUNTER FOR PROPHYLACTIC MEASURES, UNSPECIFIED SNOMED Code(s): 676782602 Comment: SQ heparin (6) Full code status Current Visit: Yes Status: Acute Code(s): Z78.9 - OTHER SPECIFIED HEALTH STATUS SNOMED Code(s): 755360418
[2018-08-17] MEDS ORDERED: Atorvastatin* 80 MG TAB PO SCH (17:00)
[2018-08-17] MEDS: Heparin VIAL(*) 5000 UNITS/ML VIAL (FIVE THOUSAND) SUBCUT SCH (20:50)
[2018-08-18 07:00] LABS: BUN/Creatinine Ratio 13.1 (8-20); EGFR African American 122.3 (>60); EGFR Non-African American 101.1 (>60); Magnesium 1.7 mg/dL (1.9-2.7); Phosphorus 2.6 mg/dL (2.5-5.0); Potassium 3.4 mmol/L (3.5-5.0)
[2018-08-18 07:43] VITALS: BP 153/83
[2018-08-18] MEDS: Insulin LISPRO* 1 UNITS UNIT SUBCUT SCH ×2 (07:45→11:46)
[2018-08-18] MEDS: Ticagrelor* 90 MG TAB PO SCH (08:31)
[2018-08-18] MEDS: Pantoprazole IV* 40 MG IV SCH (08:31)
[2018-08-18] MEDS: Heparin VIAL(*) 5000 UNITS/ML VIAL (FIVE THOUSAND) SUBCUT SCH (08:31)
[2018-08-18] MEDS: Aspirin 81 mg CHEW TAB* 81 MG TAB.CHEW NG TUBE SCH (08:31)
[2018-08-18] MEDS: Diltiazem CD CAP* 120 MG PO SCH (08:31)
[2018-08-18] MEDS ORDERED: Lisinopril TAB* 5 MG PO SCH (09:00)
[2018-08-18] MEDS ORDERED: Potassium Chlor TAB* 20 MEQ TAB.ER PO ONE (10:39)
[2018-08-18] MEDS ORDERED: Magnesium Oxide TAB* 400 MG PO ONE (10:39)
--- NOTE | 2018-08-18 20:09 | DS ---
CC: Dr. Patterson; Dr. William* DISCHARGE SUMMARY: DATE OF ADMISSION: 08/15/18 DATE OF DISCHARGE: 08/18/18 PRIMARY CARE PROVIDER: Dr. Angelia William. PRINCIPAL DIAGNOSES: 1. Inferior wall ST elevation myocardial infarction. 2. Asystole arrest in the ER with prompt return of spontaneous circulation and agitation requiring intubation. 3. Methamphetamine abuse. SECONDARY DIAGNOSES: 1. Hypertension. 2. Gastroesophageal reflux disease. 3. Type 2 diabetes. 4. Tobacco abuse. DISCHARGE MEDICATIONS: 1. Brilinta 90 mg p.o. b.i.d. 2. Nitroglycerin 0.4 mg SL q.5 minutes p.r.n. chest pain. 3. Lisinopril 5 mg p.o. daily. 4. Diltiazem CD 120 mg p.o. daily. 5. Lipitor 80 mg p.o. daily. 6. Aspirin 81 mg p.o. daily. HOSPITAL COURSE: Ms. Sawyer is a 57-year-old female who initially presented to [place] [facility] with complaints of chest pain. While at [place], the patient received Lopressor and was being arranged to be transferred to [facility] for further evaluation when she went asystolic and code was called. According to the notes from [place], the patient ultimately slowly came back to being bradycardic with complete heart block. She received atropine and pacing pads were applied. The patient was then yelling in pain as the chest pain had returned. She was started Versed due to the sedation she received for the transcutaneous pacing. She was sedated and she required intubation in the ER prior to transfer. The patient was taken emergently to the cardiac catheterization lab by Dr. Patterson, where she was found to have a 90% stenosis in the proximal RCA that did not respond to nitroglycerin. It was not felt to be secondary to vasospasm. The patient was stented with a drug-eluting stent and transferred to the intensive care unit. The patient was subsequently extubated. She has been doing well and has been chest pain free since her ability to tell us so. The patient's medication regimen has been adjusted where she is now on aspirin and Brilinta. She will continue also on lisinopril and diltiazem CD in case there was a component of vasospasm. The patient has also been started on Lipitor. Nitroglycerin has been provided to the patient. She has been up and ambulating around the floor without any chest pain or shortness of breath. The patient did have evidence of bruising in the right groin. There was no evidence of pseudoaneurysm or hematoma. In terms of the methamphetamine use, the patient states that she was going to try to stop using this. It is unclear if this played any role in her clinical situation. PHYSICAL EXAMINATION: On the day of discharge, the patient is awake, alert, and oriented; sitting up in bed, in no acute distress. Cardiac exam reveals a normal S1, S2, regular rate and rhythm. Her lungs are clear. Her abdomen is soft, nontender, and nondistended. She moves all 4 extremities symmetrically. FOLLOWUP CONCERNS: The patient is being discharged home today 08/18/18. ACTIVITY LEVEL: As tolerated and per post cath instructions. CONDITION ON DISCHARGE: Improved and stable. DIET: Heart healthy. The patient is to follow up with Dr. Patterson on 08/25/18 at 3 p.m. in the medical office building. She is also to follow up with her primary care provider in the next 4 to 7 days. TIME SPENT: Thirty five minutes was spent discharging this patient. [id number]/[facility] #: [id number]
== END 2018-08-18 12:00 | disposition home or self-care (01) | DRG 247 ==
LOC: ED 20:59 → CHICATH 21:02 → ICU 22:10 → MEDTELE 08-16 18:01
PROVIDERS: ADMIT Internal Medicine Cardiovascular Disease; ATTEND Internal Medicine Cardiovascular Disease
PROC: 5A1935Z Respiratory Ventilation, Less than 24 Consecutive Hours (ICD-10-PCS; 2018-08-15)
PROC: 027034Z Dilation of Coronary Artery, One Artery with Drug-eluting Intraluminal Device, Percutaneous Approach (ICD-10-PCS; principal; 2018-08-16)
PROC: 4A023N7 Measurement of Cardiac Sampling and Pressure, Left Heart, Percutaneous Approach (ICD-10-PCS; 2018-08-16)
PROC: B2111ZZ Fluoroscopy of Multiple Coronary Arteries using Low Osmolar Contrast (ICD-10-PCS; 2018-08-16)
DX: I21.19 ST elevation (STEMI) myocardial infarction involving other coronary artery of inferior wall (principal); F15.20 Other stimulant dependence, uncomplicated; I44.2 Atrioventricular block, complete; I10 Essential (primary) hypertension; K21.9 Gastro-esophageal reflux disease without esophagitis; I25.10 Atherosclerotic heart disease of native coronary artery without angina pectoris; E78.5 Hyperlipidemia, unspecified; E11.9 Type 2 diabetes mellitus without complications; I95.9 Hypotension, unspecified; R68.0 Hypothermia, not associated with low environmental temperature; Z79.51 Long term (current) use of inhaled steroids; Z79.899 Other long term (current) drug therapy; Z79.82 Long term (current) use of aspirin
CPT/HCPCS: 36415; 71045; 80048; 80061; 80307; 81003; 82550; 82553; 82803; 82947; 83036; 83735; 84100; 84484; 85025; 85027; 85347; 87040; 87086; 87641; 93005; 93306; 94002; 99156; 99284; A9270-GY; C1725; C1769; C1876; C1887; C8929; C9606-RC; J1327; J1644; J2250; J2704; J3010; J3480

== ENCOUNTER 2022-05-12 17:12 | Inpatient (IN) ==
[2022-05-12 18:15] LABS: Urine Appearance Cloudy; Urine Bilirubin Negative (Negative); Urine Blood Negative (Negative); Urine Color Yellow; Urine Glucose Negative (Negative); Urine Ketones Negative (Negative); Urine Nitrite Negative (Negative); Urine Protein 1+(30 mg/dL) (Negative); Urine Specific Gravity 1.015 (1.002-1.030); Urine Urobilinogen Negative (Negative)
[2022-05-12 18:28] LABS: ABS Basophils 0.1 10^3/ul (0-0.2); ABS Eosinophils 0.1 10^3/ul (0-0.6); ABS Lymphocytes 2.8 10^3/ul (1.0-4.8); ABS Neutrophils 5.6 10^3/ul (1.5-7.7); Eosinophil % 0.8 %; Hematocrit 43 % (35-47); Lymphocyte % 29.1 %; Mean Corpuscular HGB Conc 33 g/dL (31-36); Mean Corpuscular Hemoglobin 28 pg (27-31); Mean Corpuscular Volume 86 fL (80-97); Mean Platelet Volume 9.5 fL (7.4-10.4); Platelet Count 267 10^3/uL (150-450); Red Blood Count 4.99 10^6 /uL (3.70-4.87); Red Cell Distribution Width 14 % (10-15); White Blood Count 9.6 10^3/uL (3.5-10.8)
[2022-05-12 18:29] LABS: Urine Benzodiazepine Screen None Detected (None Detect); Urine Cannabinoids Screen None Detected (None Detect); Urine Opiates Screen None Detected (None Detect)
[2022-05-12 18:39] LABS: Urine Bacteria 1+ (Absent); Urine Red Blood Cell Absent (Absent); Urine Squamous Epithelial Cell Present (Absent); Urine White Blood Cell Trace(0-5/hpf) (Absent)
[2022-05-12 19:09] LABS: ALT 35 U/L (7-52); AST 30 U/L (13-39); Albumin 4.1 g/dL (3.2-5.2); Albumin/Globulin Ratio 1.6 (1-3); Alcohol, S < 13 mg/dL (<13); Alkaline Phosphatase 106 U/L (35-149); Anion Gap 4 mmol/L (2-11); Blood Urea Nitrogen 7 mg/dL (6-24); CO2 Carbon Dioxide 28 mmol/L (22-32); Chloride 109 mmol/L (101-111); Creatinine, Serum 0.65 mg/dL (0.51-0.95); Globulin 2.6 g/dL (2-4); Glucose 98 mg/dL (70-100); Potassium 3.8 mmol/L (3.5-5.0); Salicylate < 2.50 mg/dL (<30); Sodium 141 mmol/L (135-145); Total Protein 6.7 g/dL (6.4-8.9); eGFR CKD-EPI 100.1 (>60)
[2022-05-12 19:11] LABS: Acetaminophen < 15 mcg/mL
[2022-05-12 19:20] LABS: TSH Ultra Thyroid Stim Horm 1.04 mcIU/mL (0.34-5.60)
[2022-05-12] MEDS ORDERED: Nicotine PATCH 14 MG/24 HR PATCH TRANSDERM ONE (19:46)
[2022-05-13] MEDS ORDERED: OLANZapine 10 mg TAB*ODT PO ONE (08:49)
[2022-05-13] MEDS ORDERED: Ondansetron ODT 4 mg TAB 4 MG TAB SL ONE (10:13)
[2022-05-14 08:45] LABS: HDL Cholesterol 44.7 mg/dL
[2022-05-14] MEDS: OLANZapine 10 mg TAB*ODT PO PRN (09:36)
[2022-05-14] MEDS: Al Hydrox/Mg Hydrox/Simet LIQ 30 ML UDC PO PRN (18:09)
[2022-05-15] MEDS: Al Hydrox/Mg Hydrox/Simet LIQ 30 ML UDC PO PRN ×3 (04:22→15:31)
[2022-05-15] MEDS: OLANZapine 10 mg TAB*ODT PO SCH (08:45)
[2022-05-15] MEDS: OLANZapine 10 mg TAB*ODT PO PRN (17:45)
[2022-05-16] MEDS: Al Hydrox/Mg Hydrox/Simet LIQ 30 ML UDC PO PRN ×3 (01:50→20:05)
[2022-05-16] MEDS: OLANZapine 10 mg TAB*ODT PO SCH (07:47)
[2022-05-16] MEDS: Nicotine GUM 2MG FRUIT FLAVOR PO PRN ×2 (11:04→15:50)
[2022-05-16] MEDS: OLANZapine 10 mg TAB*ODT PO PRN (17:00)
[2022-05-17] MEDS: OLANZapine 10 mg TAB*ODT PO SCH (07:43)
[2022-05-17] MEDS: Nicotine GUM 2MG FRUIT FLAVOR PO PRN ×2 (15:30→17:46)
[2022-05-17] MEDS: OLANZapine 10 mg TAB*ODT PO PRN (17:48)
[2022-05-18] MEDS: Nicotine GUM 2MG FRUIT FLAVOR PO PRN ×3 (07:27→18:51)
[2022-05-18] MEDS: OLANZapine 10 mg TAB*ODT PO SCH (09:39)
[2022-05-18] MEDS: OLANZapine 10 mg TAB*ODT PO PRN (15:13)
[2022-05-18] MEDS: Al Hydrox/Mg Hydrox/Simet LIQ 30 ML UDC PO PRN ×2 (17:55→23:46)
[2022-05-19] MEDS: Nicotine GUM 2MG FRUIT FLAVOR PO PRN ×3 (06:38→16:11)
[2022-05-19] MEDS: OLANZapine 10 mg TAB*ODT PO SCH ×2 (06:38→07:27)
[2022-05-19] MEDS: Al Hydrox/Mg Hydrox/Simet LIQ 30 ML UDC PO PRN (12:46)
[2022-05-20] MEDS: Al Hydrox/Mg Hydrox/Simet LIQ 30 ML UDC PO PRN (01:27)
[2022-05-20] MEDS: OLANZapine 10 mg TAB*ODT PO SCH (07:34)
[2022-05-20 07:42] VITALS: BP 154/78
[2022-05-20] MEDS: Nicotine GUM 2MG FRUIT FLAVOR PO PRN (10:30)
== END 2022-05-20 12:42 | disposition home or self-care (01) | DRG 897 ==
LOC: ED 17:12 → EDHOLD 05-13 10:44 → BSU 05-13 12:42
PROVIDERS: ADMIT Psychiatry & Neurology Psychiatry; ATTEND Psychiatry & Neurology Psychiatry